=== PATIENT | female | born 1985 | race Caucasian/White ===

== ENCOUNTER → 2017-07-01 | Outpatient (CLI) | payer OTHER ==
[~2017-07-01] MED LIST: ALBU90OI61 INH; BENZ100A PO; CEPH500 PO; LEVSOD100 PO; METPRE4DP PO; Monodox100 MG PO; Norco 5-325 Ta1 EACH PO; Ventolin/Prove6.7 GM INH
== END | disposition home or self-care (01) ==
LOC: LAB 12:47
DX: Z36.85 Encounter for antenatal screening for Streptococcus B (principal); Z3A.35 35 weeks gestation of pregnancy
CPT/HCPCS: 87081; 87653

== ENCOUNTER 2017-08-15 14:44 | Inpatient (IN) | payer OTHER ==
[~2017-08-15] VITALS: Ht 157.5 cm; Wt 99.0 kg
[2017-08-15 16:16] LABS: Source, Urine Clean Catch
[2017-08-15 16:17] LABS: BASOPHILS ABSOLUTE AUTO 0.03 K/mm3 (0.00-0.23); BASOPHILS PERCENT AUTO 0 % (0-2); EOSINOPHILS ABSOLUTE AUTO 0.12 K/mm3 (0.00-0.68); EOSINOPHILS PERCENT AUTO 1 % (0-6); Hematocrit 40.9 % (33.0-51.0); Hemoglobin 13.3 g/dL (11.5-16.0); IMMATURE GRAN ABSOLUTE AUTO 0.04 K/mm3 (0.00-0.10); IMMATURE GRAN PERCENT AUTO 0 % (0-1); LYMPHOCYTES ABSOLUTE AUTO 1.48 K/mm3 (0.84-5.20); LYMPHOCYTES PERCENT AUTO 13 % (21-46); MONOCYTES ABSOLUTE AUTO 0.75 K/mm3 (0.16-1.47); MONOCYTES PERCENT AUTO 7 % (4-13); Mean Corpuscular HGB 27.9 pg (26.0-34.0); Mean Corpuscular HGB Conc 32.5 g/dL (31.5-36.5); Mean Corpuscular Volume 86 fL (80-100); Mean Platelet Volume 11.9 fL (9.1-12.4); NEUTROPHILS ABSOLUTE AUTO 9.02 K/mm3 (1.96-9.15); NEUTROPHILS PERCENT AUTO 79 % (41-73); Platelet Count 177 K/mm3 (150-400); RDW Coefficient Variation 13.8 % (11.7-14.2); RDW Standard Deviation 43.3 fL (35.1-46.3); Red Blood Cell Count 4.76 M/mm3 (3.80-5.20); White Blood Cell Count 11.44 K/mm3 (4.00-11.30)
[2017-08-15 16:22] LABS: Appearance, Urine Clear (Clear); Bilirubin, Urine Neg (Neg); Blood, Urine 4+ (Neg); Color, Urine Yellow (P-Yellow); Glucose Qualitative, Urine Neg (Neg); Ketones, Urine Neg (Neg); Leukocyte Esterase, Urine 1+ (Neg); Nitrite, Urine Neg (Neg); Protein, Urine Neg (Neg); Urobilinogen, Urine NORM (Normal)
[2017-08-15 16:36] LABS: Bacteria Rare /hpf; Red Blood Cells, Urine 0-2 /hpf (0-2); Squamous Epithelial Cells Mod /hpf (Few)
[2017-08-16 06:51] LABS: BASOPHILS ABSOLUTE AUTO 0.02 K/mm3 (0.00-0.23); BASOPHILS PERCENT AUTO 0 % (0-2); EOSINOPHILS ABSOLUTE AUTO 0.03 K/mm3 (0.00-0.68); EOSINOPHILS PERCENT AUTO 0 % (0-6); Hematocrit 34.2 % (33.0-51.0); Hemoglobin 11.1 g/dL (11.5-16.0); IMMATURE GRAN ABSOLUTE AUTO 0.03 K/mm3 (0.00-0.10); IMMATURE GRAN PERCENT AUTO 0 % (0-1); LYMPHOCYTES ABSOLUTE AUTO 1.02 K/mm3 (0.84-5.20); LYMPHOCYTES PERCENT AUTO 12 % (21-46); MONOCYTES ABSOLUTE AUTO 0.64 K/mm3 (0.16-1.47); MONOCYTES PERCENT AUTO 7 % (4-13); Mean Corpuscular HGB 28.3 pg (26.0-34.0); Mean Corpuscular HGB Conc 32.5 g/dL (31.5-36.5); Mean Corpuscular Volume 87 fL (80-100); Mean Platelet Volume 11.9 fL (9.1-12.4); NEUTROPHILS ABSOLUTE AUTO 6.86 K/mm3 (1.96-9.15); NEUTROPHILS PERCENT AUTO 80 % (41-73); Platelet Count 134 K/mm3 (150-400); RDW Standard Deviation 44.1 fL (35.1-46.3); Red Blood Cell Count 3.92 M/mm3 (3.80-5.20)
== END 2017-08-17 11:15 | disposition home or self-care (01) | DRG 775 ==
LOC: OBS 14:44 → BC 14:45 → OBS 15:35 → BC 15:40
PROVIDERS: Obstetrics & Gynecology
PROC: 10D07Z6 Extraction of Products of Conception, Vacuum, Via Natural or Artificial Opening (ICD-10-PCS; principal; 2017-08-15)
DX: O48.0 Post-term pregnancy (principal); O24.420 Gestational diabetes mellitus in childbirth, diet controlled; E03.9 Hypothyroidism, unspecified; O99.284 Endocrine, nutritional and metabolic diseases complicating childbirth; Z37.0 Single live birth; Z3A.42 42 weeks gestation of pregnancy; O76 Abnormality in fetal heart rate and rhythm complicating labor and delivery; Z88.0 Allergy status to penicillin; Z79.899 Other long term (current) drug therapy
CPT/HCPCS: 36415; 81001; 82947; 85025; J2250; J2590; J3010; J7120

== ENCOUNTER 2018-08-12 18:48 | Inpatient (IN) | payer OTHER ==
[~2018-08-12] VITALS: Ht 157.5 cm; Wt 70.6 kg
[~2018-08-12 18:48] MED LIST changes: -LEVSOD100 PO; +LEVSOD150 PO
[2018-08-12 19:10] LABS: Chloride (POC) 112 mmol/L (98-108); Creatinine (POC) 0.7 mg/dL (0.6-1.0); Glucose (ISTAT POC) >700 mg/dL (70-99); Hemoglobin (POC) 15.6 g/dL (12.0-16.0); Potassium (POC) 2.9 mmol/L (3.5-5.5); Sodium (POC) 140 mmol/L (135-148); Total CO2 (POC) <5 mmol/L (21-32)
[2018-08-12 19:24] LABS: PCO2 Arterial < 11 mmHg (35-45); PO2 Arterial 146 mmHg (80-100); pH Blood Arterial 6.87 (7.35-7.45)
[2018-08-12 19:29] LABS: BASOPHILS ABSOLUTE AUTO 0.24 K/mm3 (0.00-0.23); BASOPHILS PERCENT AUTO 1 % (0-2); EOSINOPHILS ABSOLUTE AUTO 0.01 K/mm3 (0.00-0.68); EOSINOPHILS PERCENT AUTO 0 % (0-6); Hematocrit 45.2 % (33.0-51.0); Hemoglobin 15.4 g/dL (11.5-16.0); IMMATURE GRAN ABSOLUTE AUTO 0.19 K/mm3 (0.00-0.10); IMMATURE GRAN PERCENT AUTO 1 % (0-1); LYMPHOCYTES ABSOLUTE AUTO 1.81 K/mm3 (0.84-5.20); LYMPHOCYTES PERCENT AUTO 7 % (21-46); MONOCYTES ABSOLUTE AUTO 2.69 K/mm3 (0.16-1.47); MONOCYTES PERCENT AUTO 10 % (4-13); Mean Corpuscular HGB 33.2 pg (26.0-34.0); Mean Corpuscular HGB Conc 34.1 g/dL (31.5-36.5); Mean Corpuscular Volume 97 fL (80-100); Mean Platelet Volume 11.8 fL (9.1-12.4); NEUTROPHILS PERCENT AUTO 81 % (41-73); Platelet Count 394 K/mm3 (150-400); RDW Coefficient Variation 13.3 % (11.7-14.2); Red Blood Cell Count 4.64 M/mm3 (3.80-5.20); White Blood Cell Count 25.94 K/mm3 (4.00-11.30)
[2018-08-12 19:43] LABS: Source, Urine Catheter
[2018-08-12 19:48] LABS: Bilirubin, Urine Neg (Neg); Blood, Urine 3+ (Neg); Glucose Qualitative, Urine 4+ (Neg); Ketones, Urine 4+ (Neg); Leukocyte Esterase, Urine Neg (Neg); Nitrite, Urine Neg (Neg); Protein, Urine 3+ (Neg); Urobilinogen, Urine NORM (Normal)
[2018-08-12 19:50] LABS: Magnesium, Blood 3.2 mg/dL (1.6-2.4); Phosphorus, Blood 5.2 mg/dL (2.5-4.9)
[2018-08-12 19:55] LABS: Appearance, Urine Hazy (Clear); Color, Urine Yellow (P-Yellow)
[2018-08-12 19:59] LABS: Alanine Aminotransfer (ALT/SGP 22 U/L (12-78); Albumin, Blood 4.1 g/dL (3.4-5.0); Alk Phos 256 U/L (50-136); Anion Gap 32 mmol/L (6-16); Aspartate Aminotrans (AST/SGOT 10 U/L (12-37); Bilirubin, Total 0.5 mg/dL (0.1-1.0); Blood Urea Nitrogen 17 mg/dL (8-24); Bun/Creatinine Ratio 23.1 (12.0-20.0); CO2, Blood 2 mmol/L (21-32); Calcium, Blood 10.6 mg/dL (8.5-10.1); Chloride, Blood 104 mmol/L (98-108); Creatinine, Blood 0.74 mg/dL (0.40-1.00); Globulin, Blood 4.2 g/dL (2.2-4.0); Glomerular Filtration Rate >60 (60-); Glucose, Blood 710 mg/dL (70-99); Potassium, Blood 2.9 mmol/L (3.5-5.5); Sodium, Blood 138 mmol/L (136-145); Total Protein, Blood 8.3 g/dL (6.4-8.2)
[2018-08-12 20:01] LABS: Amorphous Light ({null, 0-Heavy}); Bacteria Mod /hpf; Red Blood Cells, Urine 0-2 /hpf (0-2); Squamous Epithelial Cells Few /hpf (Few); White Blood Cells, Urine 0-2 /hpf (0-5)
[2018-08-12 20:03] LABS: Magnesium, Blood 3.1 mg/dL (1.6-2.4)
[2018-08-12] MEDS ORDERED: Metformin HCl500 MG PO (20:12)
[2018-08-12 20:42] LABS: Influenza A Negative (NEGATIVE); Influenza B Negative (NEGATIVE)
[2018-08-12 21:10] LABS: Calcium, Ionized (POC) 1.44 mmol/L (1.10-1.46); Chloride (POC) 117 mmol/L (98-108); Creatinine (POC) 0.6 mg/dL (0.6-1.0); Glucose (ISTAT POC) 634 mg/dL (70-99); Hemoglobin (POC) 13.9 g/dL (12.0-16.0); Potassium (POC) 3.2 mmol/L (3.5-5.5); Sodium (POC) 144 mmol/L (135-148); Total CO2 (POC) 7 mmol/L (21-32)
[2018-08-12 23:20] LABS: Calcium, Ionized (POC) 1.37 mmol/L (1.10-1.46); Chloride (POC) 121 mmol/L (98-108); Creatinine (POC) 0.6 mg/dL (0.6-1.0); Glucose (ISTAT POC) 587 mg/dL (70-99); Hemoglobin (POC) 13.3 g/dL (12.0-16.0); Potassium (POC) 3.6 mmol/L (3.5-5.5); Sodium (POC) 146 mmol/L (135-148); Total CO2 (POC) 6 mmol/L (21-32)
[2018-08-13 00:47] LABS: Blood Urea Nitrogen 15 mg/dL (8-24); Bun/Creatinine Ratio 24.7 (12.0-20.0); CO2, Blood <1 mmol/L (21-32); Chloride, Blood 119 mmol/L (98-108); Creatinine, Blood 0.61 mg/dL (0.40-1.00); Glomerular Filtration Rate >60 (60-); Glucose, Blood 523 mg/dL (70-99); Potassium, Blood 3.6 mmol/L (3.5-5.5)
[2018-08-13 00:53] LABS: Anion Gap Unable to Calculate mmol/L (6-16); Calcium, Blood 8.4 mg/dL (8.5-10.1); Sodium, Blood 148 mmol/L (136-145)
--- NOTE | 2018-08-13 01:05 | NUR ---
ADMIT NOTE ADMIT 33 YEAR OLD FEMALE TO ICU 9 TO HOSPITALIST, DR GONZALEZ SERVICE PER [facility] VIA ER. TRANSFER TO BED USING SLIDER SHEET. MONITOR PLACED SHOWING SINUS TACH HEART RATE 120'S-130'S. DOES NOT FOLLOW REQUEST DIRECTION. LUNG SOUNDS CLEAR RESPIRATIONS RAPID 30'S-40'S. SPO2 98-100% ABDOMEN SOFT WITH BOWEL SOUND S FOUR QUADS. ATTENDS IN PLACE SECONDARY TO INCONTINECE. IS HAVING MENES. SKIN PALE WARM/DRY NO EDEMA NOTED. DR GONZALEZ AT BEDSIDE. ORDERS NOTED. CONTINUE TO MONITOR AND REPORT CHANGE IN PATIENT CONDITION. IV BICARB GIVEN AFTER R AC SITE CHECKED WITH GOOD BLOOD RETURM. IV SITE LEAKING WHEN ATTEMPTING TO START BICARB GTT. SITE DC'D. INSULIN GTT CONTINUES AT 3.6ML/HR WITH HOURLY BLOOD GLUCOSE CHECKS.
--- NOTE | 2018-08-13 01:30 | NUR ---
IV ATTMPTS UNSUCCESSFULL. DR GONZALEZ NOTIFIED INSULIN STOPPED TO BE ABLE TO INFUSE BICARB GTT. ORDERS NOTED. DR WEEKS NOTIFIED OF NEED FOR CENTRAL LINE.CONTINUE TO MONITOR AND REPORT CHANGE IN PATIENT CONDITION.
--- NOTE | 2018-08-13 01:50 | NUR ---
DR GONZALEZ AT BEDSIDE.
--- NOTE | 2018-08-13 02:00 | NUR ---
DR WEEKS AT BEDSIDE. DR GONZALEZ ORDERS FOR SOFT WRIST RESTRAINTS NOTED PAT PLACED IN SOFT BILATERAL WRIST RESTRAINTS TO PREVENT INADVERTENT REMOVAL OF LINES/TUBES. CONTINUES TO MOVE ALL OVER THE BED AND UNABLE TO FOLLOW REQUESTS. 0220 MEDICATED FOR CENTRAL LINE PLACEMENT. 0240CENTRAL LINE PLACEMENT COMPLETE STAT CXR OBTAINED AT 0250. DR WEEKS OK'D LINE USAGE PER LINING BRUSHER. INSULIN GTT RESTARTED AT 3.6ML/HR AND ONE HALF NORMAL SALINE WITH BICARB INITATED AT WIDE OPEN.S. SPOUSE AT BEDSIDE ASSISTING WITH ADMIT HISTORY AND INFORMED CONSENTS.CONTINUE TOMONITOR BLOOD GLUCOSE CHECKS.
--- NOTE | 2018-08-13 03:05 | NUR ---
DR. GONZAELZ CALLED AT 0120 FOR CENTRAL LINE PLACEMENT SINCE ALL ATTEMPTS FOR PERIPHERAL FAILED. NEW ORDERS TO STOP INSULIN AND INFUSE BICARB gtt UNTIL SECOND IV ACHIEVED AND TO ATTEMPT IV START IN PT'S FEET AND TO CALL BACK IF NOT SUCCESSFUL.
--- NOTE | 2018-08-13 03:30 | NUR ---
RETCHING WITH BROWN/GREEN BILE LIKE EMESIS WHEN AWAKE. APPROX 100ML. DR GONZALEZ NOTIFIED OF LAB RESULTS AND ORDER FOR MOSQUERA OBTAINED. MOSQUERA PLACED WITH IMMEDIATE RETURN OF 350 CLEAR SIRIA URINE. SPOUSE AT BEDSIDE ATTENTIVE TO CCARES NEEDS.
--- NOTE | 2018-08-13 04:30 | NUR ---
DOZES AT INTERVALS. RETCHING WHEN AWAKE. MEDICATED WITH ZOFRAN 4MG IV. PULLING AT RESTRAINTS SUBHASH AGRAWAL ASHLEY . EXPLAINED NPO STATUS CONTINUES TO ASK FOR WATER. PULLS AT WRIST RESTRAINTS. CONTINUE TO MONITOR AND REPORT CHANGE IN PATIENT CONDITION.
[2018-08-13 04:31] LABS: Anion Gap 28 mmol/L (6-16); Blood Urea Nitrogen 14 mg/dL (8-24); Bun/Creatinine Ratio 23.2 (12.0-20.0); CO2, Blood 4 mmol/L (21-32); Calcium, Blood 7.7 mg/dL (8.5-10.1); Chloride, Blood 122 mmol/L (98-108); Glomerular Filtration Rate >60 (60-); Glucose, Blood 370 mg/dL (70-99); Potassium, Blood 2.7 mmol/L (3.5-5.5); Sodium, Blood 154 mmol/L (136-145)
--- NOTE | 2018-08-13 06:30 | NUR ---
SHIFT SUMMARY : REST QUIETLY WHEN UNDISTURBED. RETCHING AND DRY HEAVES WHEN AWAKENED. MONITOR INTACT SHOWING SINUS TACH HEART RATE 110'S-120'S. LUNG SOUNDS REMAIN CLEAR WITH SPO2 98-100% ON ROOM AIR ABDOMEN SOFT WITH BOWEL SOUNDS FOUR QUADS. MOSQUERA PATENT DRAINING CLEAR YELLOW URINE.NO EDEMA NOTED.REMAINS IN SOFT WRIST RESTRAINTS TIMES TWO TO PREVENT INADVERTENT REMOVAL OF TUBES/LINES.SPOUSE REMAINS AT BEDSIDE ATTENTIVE TO NEEDS CARES. CONTINUE TO MONITOR AND REPORT CHANGE IN PATINET CONDITION
[2018-08-13 07:18] LABS: Adenovirus Not Detected (NOT DETECT); Bordetella pertussis Not Detected (NOT DETECT); Chlamydophila pneumoniae Not Detected (NOT DETECT); Coronavirus 229E Not Detected (NOT DETECT); Coronavirus HKU1 Not Detected (NOT DETECT); Coronavirus NL63 Not Detected (NOT DETECT); Coronavirus OC43 Not Detected (NOT DETECT); Human Metapneumovirus Not Detected (NOT DETECT); Human Rhinovirus/Enterovirus Not Detected (NOT DETECT); Influenza A Not Detected (NOT DETECT); Influenza A/2009-H1 Not Detected (NOT DETECT); Influenza A/H1 Not Detected (NOT DETECT); Influenza A/H3 Not Detected (NOT DETECT); Influenza B Not Detected (NOT DETECT); Mycoplasma pneumoniae Not Detected (NOT DETECT); Parainfluenza Virus 1 Not Detected (NOT DETECT); Parainfluenza Virus 2 Not Detected (NOT DETECT); Parainfluenza Virus 3 Not Detected (NOT DETECT); Parainfluenza Virus 4 Not Detected (NOT DETECT); Respiratory Syncytial Virus Not Detected (NOT DETECT)
[2018-08-13 08:43] LABS: Blood Urea Nitrogen 14 mg/dL (8-24); Bun/Creatinine Ratio 20.6 (12.0-20.0); Calcium, Blood 8.3 mg/dL (8.5-10.1); Chloride, Blood 125 mmol/L (98-108); Creatinine, Blood 0.68 mg/dL (0.40-1.00); Glomerular Filtration Rate >60 (60-); Glucose, Blood 236 mg/dL (70-99); Sodium, Blood 155 mmol/L (136-145)
[2018-08-13 08:45] LABS: Anion Gap 22 mmol/L (6-16); CO2, Blood 8 mmol/L (21-32); Potassium, Blood 2.1 mmol/L (3.5-5.5)
--- NOTE | 2018-08-13 08:52 | NUR ---
ASSUMED CARE ASSUMED CARE OF PT AT 0700. REPORT RECEIVED FROM OBDULIA VIDES. PT IN BED, SLEEPING, AROUSES TO VERBAL STIMULUS. PT CONFUSED - UNABLE TO STATE NAME OR ANSWER ANY QUESTIONS AT THIS TIME. PT RETCHES WHEN AWAKE - CALL TO DR. NUNEZ WITH ORDERS RECEIVED FOR IV REGLAN. ALSO DISCUSSED LOW POTASSIUM - ORDERS RECEIVED FOR IV KCL REPLACEMENT. PT'S VITAL SIGNS STABLE - MONITOR SHOWS SINUS RHYTHM WITH HR 90'S, BP STABLE, SPO2 98% ON ROOM AIR. PT HAS CL TO RIJ. INSULIN GTT AT 3.6 UNITS/HR UPON ASSUMING CARE, TITRATED TO 4 UNITS/HR AT 0845 FOR INCREASED BP AFTER STARTING D5 1/2NS. PT HAS MOSQUERA CATH IN PLACE DRAINING CLEAR YELLOW URINE TO GRAVITY. PT IS ON MENSES CURRENTLY WITH PROTECTIVE PAD IN PLACE. PT HAS DEE SOFT WRIST RESTRAINTS IN PLACE TO PROTECT LINES, TUBES. PT'S AT BEDSIDE. WILL CONTINUE TO MONITOR PT.
--- NOTE | 2018-08-13 11:52 | NUR ---
RE-ASSESSMENT PT MORE ALERT WHEN AWAKE AT THIS TIME. FOLLOWING SOME DIRECTIONS. ABLE TO STATE NAME, BIRTHDATE AND WHEREABOUTS, ORIENTED TO FAMILY MEMBERS AT BEDSIDE. INSULIN GTT BEING TITRATED TO MAINTAIN BLOOD SUGARS 180-250 RANGE. D5 1/2 NS CONTINUES AT 125ML/HR. SECOND BAG OF KCL INFUSING AT THIS TIME. RESTRAINTS REMOVED AT THIS TIME. WILL CONTINUE TO MONITOR PT CLOSELY.
[2018-08-13 12:37] LABS: Anion Gap 15 mmol/L (6-16); Blood Urea Nitrogen 13 mg/dL (8-24); Bun/Creatinine Ratio 19.6 (12.0-20.0); CO2, Blood 16 mmol/L (21-32); Calcium, Blood 8.3 mg/dL (8.5-10.1); Chloride, Blood 125 mmol/L (98-108); Creatinine, Blood 0.66 mg/dL (0.40-1.00); Glomerular Filtration Rate >60 (60-); Glucose, Blood 251 mg/dL (70-99); Potassium, Blood 2.1 mmol/L (3.5-5.5); Sodium, Blood 156 mmol/L (136-145)
--- NOTE | 2018-08-13 15:08 | NUR ---
Per admit trigger, I met with Krystyna and her SO at bedside. Krystyna is very tired and could not stay awake. SO appears loving and attentive. SO declined prayer and their supply chain planner is making visits. I will remain available.
[2018-08-13 16:36] LABS: Anion Gap 12 mmol/L (6-16); Blood Urea Nitrogen 13 mg/dL (8-24); Bun/Creatinine Ratio 20.8 (12.0-20.0); CO2, Blood 18 mmol/L (21-32); Calcium, Blood 8.4 mg/dL (8.5-10.1); Chloride, Blood 125 mmol/L (98-108); Creatinine, Blood 0.63 mg/dL (0.40-1.00); Glomerular Filtration Rate >60 (60-); Glucose, Blood 192 mg/dL (70-99); Sodium, Blood 155 mmol/L (136-145)
--- NOTE | 2018-08-13 18:44 | NUR ---
SHIFT SUMMARY PT INCREASINGLY ALERT AND ORIENTED SHIFT PROGRESSED - PT ALERT TO SELF, FOLLOWING DIRECTIONS, FAMILY, ABLE TO VERBALIZE NEEDS. RESTRAINTS REMOVED THIS AM. PT REMAINS ON INSULIN GTT AWAITING LAB CORRECTION, CURRENTLY AT 4 UNITS/HR. D5 1/2NS INFUSING AT 125ML/HR. PT IS CURRENTLY RECEIVING 4TH BAG OF IV KCL THIS SHIFT TO TOTAL 80 MEQ - TO RECEIVE 2 MORE BAGS TONIGHT FOR TOTAL OF 120 MEQ. IV ROCEPHIN STARTED PER ORDERS. VITAL SIGNS STABLE T/O SHIFT, ON ROOM AIR. MOSQUERA CATH CONTINUES TO DRAIN CLEAR YELLOW URINE TO GRAVITY. PT'S AT BEDSIDE T/O SHIFT ASSISTING WITH CARE. WILL CONTINUE TO MONITOR PT AND GIVE HANDOFF REPORT TO ONCOMING RN.
--- NOTE | 2018-08-13 19:55 | NUR ---
ASSUMED CARE OF PT AT 1900. REPORT RECEIVED AT BEDSIDE. PT PRESENTS IN BED. FLAT AFFECT. PLEASANT AND COOPERATIVE WITH CARE. AT BEDSIDE. CONTINUING WITH INSULIN AT 4 UNITS PER HOUR AND HOURLY BLOOD GLUCOSE CHECKS. PT CONTINUES ON POTASSIUM REPLACEMENT. WILL REVIEW CHART AND PLAN OF CARE FOR THIS PT.
[2018-08-14 03:25] LABS: Anion Gap 10 mmol/L (6-16); Blood Urea Nitrogen 12 mg/dL (8-24); Bun/Creatinine Ratio 20.6 (12.0-20.0); CO2, Blood 21 mmol/L (21-32); Calcium, Blood 8.2 mg/dL (8.5-10.1); Chloride, Blood 122 mmol/L (98-108); Creatinine, Blood 0.58 mg/dL (0.40-1.00); Glomerular Filtration Rate >60 (60-); Glucose, Blood 110 mg/dL (70-99); Potassium, Blood 2.1 mmol/L (3.5-5.5); Sodium, Blood 153 mmol/L (136-145)
[2018-08-14 04:40] LABS: BASOPHILS ABSOLUTE AUTO 0.04 K/mm3 (0.00-0.23); BASOPHILS PERCENT AUTO 0 % (0-2); EOSINOPHILS ABSOLUTE AUTO 0.04 K/mm3 (0.00-0.68); EOSINOPHILS PERCENT AUTO 0 % (0-6); Hematocrit 26.8 % (33.0-51.0); Hemoglobin 9.8 g/dL (11.5-16.0); IMMATURE GRAN ABSOLUTE AUTO 0.03 K/mm3 (0.00-0.10); IMMATURE GRAN PERCENT AUTO 0 % (0-1); LYMPHOCYTES ABSOLUTE AUTO 0.96 K/mm3 (0.84-5.20); LYMPHOCYTES PERCENT AUTO 11 % (21-46); MONOCYTES ABSOLUTE AUTO 1.03 K/mm3 (0.16-1.47); MONOCYTES PERCENT AUTO 11 % (4-13); Mean Corpuscular HGB 33.3 pg (26.0-34.0); Mean Corpuscular HGB Conc 36.6 g/dL (31.5-36.5); NEUTROPHILS PERCENT AUTO 77 % (41-73); Platelet Count 132 K/mm3 (150-400); RDW Coefficient Variation 12.8 % (11.7-14.2); RDW Standard Deviation 41.6 fL (35.1-46.3); Red Blood Cell Count 2.94 M/mm3 (3.80-5.20)
[2018-08-14 04:42] LABS: Mean Corpuscular Volume 91 fL (80-100)
[2018-08-14 05:14] LABS: Alanine Aminotransfer (ALT/SGP 10 U/L (12-78); Albumin, Blood 2.6 g/dL (3.4-5.0); Albumin/Globulin Ratio 0.9 (0.8-1.8); Alk Phos 128 U/L (50-136); Anion Gap 13 mmol/L (6-16); Aspartate Aminotrans (AST/SGOT 10 U/L (12-37); Bilirubin, Total 0.3 mg/dL (0.1-1.0); Blood Urea Nitrogen 12 mg/dL (8-24); CO2, Blood 19 mmol/L (21-32); Calcium, Blood 8.1 mg/dL (8.5-10.1); Chloride, Blood 119 mmol/L (98-108); Globulin, Blood 2.8 g/dL (2.2-4.0); Glomerular Filtration Rate >60 (60-); Glucose, Blood 149 mg/dL (70-99); Potassium, Blood 2.2 mmol/L (3.5-5.5); Sodium, Blood 151 mmol/L (136-145)
[2018-08-14 05:17] LABS: Total Protein, Blood 5.4 g/dL (6.4-8.2)
--- NOTE | 2018-08-14 06:43 | NUR ---
PT CONTINUES ON INSULIN DRIP WITH RATE LOW 1 UNIT PER HOUR. PT'S BLOOD GLUCOSE LEVEL INCREASED AND NEEDED TO HAVE INSULIN INCREASED TO 2 UNITS. PT MORE INTERACTIVE THIS MORNING. REMAINS WITH FLAT AFFECT BUT DOES HOLD CONVERSATION. PT CURRENTLY RECEIVING POTASSIUM RIDERS. SEE DOWNTIME CHARTING PER TRI-FOLD FOR NURSE'S NOTES AND OTHER ASSESSMENTS. WILL CONTINUE TO MONITOR PT, AND WILL REPORT OFF TO ONCOMING RN.
--- NOTE | 2018-08-14 07:15 | NUR ---
RECEIVED REPORT FROM OBDULIA DAVIS, AND ASSUMED CARE OF PT.
--- NOTE | 2018-08-14 07:45 | NUR ---
[facility].
[2018-08-14 09:20] LABS: Anion Gap 10 mmol/L (6-16); Blood Urea Nitrogen 11 mg/dL (8-24); Bun/Creatinine Ratio 18.4 (12.0-20.0); CO2, Blood 20 mmol/L (21-32); Calcium, Blood 8.2 mg/dL (8.5-10.1); Chloride, Blood 118 mmol/L (98-108); Glomerular Filtration Rate >60 (60-); Glucose, Blood 212 mg/dL (70-99); Potassium, Blood 2.4 mmol/L (3.5-5.5); Sodium, Blood 148 mmol/L (136-145)
[2018-08-14 13:22] LABS: Anion Gap 11 mmol/L (6-16); Blood Urea Nitrogen 11 mg/dL (8-24); Bun/Creatinine Ratio 19.4 (12.0-20.0); CO2, Blood 21 mmol/L (21-32); Calcium, Blood 8.1 mg/dL (8.5-10.1); Chloride, Blood 116 mmol/L (98-108); Creatinine, Blood 0.57 mg/dL (0.40-1.00); Glomerular Filtration Rate >60 (60-); Glucose, Blood 214 mg/dL (70-99); Potassium, Blood 2.2 mmol/L (3.5-5.5); Sodium, Blood 148 mmol/L (136-145)
--- NOTE | 2018-08-14 13:30 | NUR ---
CALLED DR. LEE WITH LAB RESULTS, NEW ORDERS PROVIDED.
[2018-08-14 14:08] LABS: Magnesium, Blood 1.9 mg/dL (1.6-2.4)
[2018-08-14 14:14] LABS: Albumin, Blood 2.8 g/dL (3.4-5.0); Anion Gap 10 mmol/L (6-16); Blood Urea Nitrogen 11 mg/dL (8-24); Bun/Creatinine Ratio 18.8 (12.0-20.0); CO2, Blood 21 mmol/L (21-32); Calcium, Blood 8.1 mg/dL (8.5-10.1); Chloride, Blood 117 mmol/L (98-108); Creatinine, Blood 0.59 mg/dL (0.40-1.00); Glomerular Filtration Rate >60 (60-); Glucose, Blood 213 mg/dL (70-99); Potassium, Blood 2.3 mmol/L (3.5-5.5); Sodium, Blood 148 mmol/L (136-145)
[2018-08-14 14:35] LABS: Phosphorus, Blood 0.4 mg/dL (2.5-4.9)
--- NOTE | 2018-08-14 17:10 | NUR ---
ACCOMPANIED PT TO THE ICU WAITING ROOM SO PT COULD VISIT WITH HER THREE CHILDREN. TOLERATED WELL.
--- NOTE | 2018-08-14 18:35 | NUR ---
NURSING SUMMARY ALERT AND ORIENTED X 4. INSULIN GTT INFUSING AT 2 UNITS/HR UNTIL STOPPED AT 1230. LANTUS 10 U GIVEN AND CONVERTED TO AC&HS MEDIUM SCALE. CBG AT 1700 = 294, CALLED DR. NUNEZ AND INCREASED SLIDING SCALE TO HIGH SLIDING SCALE. PT TOLERATING SMALL AMOUNTS OF ADA DIET, MILDLY NAUSEATED, EMESIS ONCE THIS MORNING. POTASSIUM LEVELS HAVE BEEN LOW, PT IS CURRENTLY RECEIVING HER 7TH BAG OF POTASSIUM CHLORIDE 20 MEQS SO FAR TODAY, ONE MORE BAG TO INFUSE TONIGHT AND THE LABS ARE SCHEDULED AT 2330. DR. LEE WANTS LABS 1 HOUR AFTER LAST K-RIDER INFUSES. PHOSPHORUS LOW AT 0.4, CURRENTLY INFUSING POTASSIUM PHOSPHATE. ROCEPHIN STARTED. LUNGS CLEAR, ROOM AIR, MEDICAL STATUS, NON-TELE, NSR 80'S PRIOR TO DISCONTINUING TELE, EVELINE DC'D AT 1800, AWAITING FIRST VOID. RIJ CENTRAL LINE, QUAD LUMEN, CHANGED DRESSING AND CAPS TODAY. AMBULATED TO THE SHOWER AND HAD A SHOWER TODAY. TOOK TO THE ICU WAITING ROOM TO VISIT HER CHILDREN TODAY. PT IS ON HER MENSES, HAS A MARISA PAD IN PLACE. RIGHT HAND AND RIGHT AC SALINE LOCKS.
[2018-08-14 23:13] LABS: Potassium, Blood 2.8 mmol/L (3.5-5.5)
--- NOTE | 2018-08-15 07:43 | NUR ---
SUMMARY PT HAS SLEPT MAJORITY OF NIGHT, AT BEDSIDE THROUGHOUT NIGHT. VITALS STABLE. SEE ASSESSMENT. PT TOLERATING SMALL AMOUNTS OF FOOD THROUGHOUT NIGHT. PT HAD POTASSIUM INFUSING THROUGHOUT NIGHT PER MD ORDERS AND LABS. AM LABS HELD FOR COMPLETION OF FINAL KCL INFUSION TO COMPLETE. DR. LEE AT BEDSIDE THIS MORNING, NEW ORDERS RECEIVED. REPORT TO OBDULIA CARMICHAEL.
[2018-08-15 09:06] LABS: BASOPHILS ABSOLUTE AUTO 0.03 K/mm3 (0.00-0.23); BASOPHILS PERCENT AUTO 1 % (0-2); EOSINOPHILS ABSOLUTE AUTO 0.04 K/mm3 (0.00-0.68); EOSINOPHILS PERCENT AUTO 1 % (0-6); Hematocrit 27.9 % (33.0-51.0); Hemoglobin 9.8 g/dL (11.5-16.0); IMMATURE GRAN ABSOLUTE AUTO 0.03 K/mm3 (0.00-0.10); IMMATURE GRAN PERCENT AUTO 1 % (0-1); LYMPHOCYTES ABSOLUTE AUTO 1.31 K/mm3 (0.84-5.20); LYMPHOCYTES PERCENT AUTO 24 % (21-46); MONOCYTES ABSOLUTE AUTO 0.51 K/mm3 (0.16-1.47); MONOCYTES PERCENT AUTO 9 % (4-13); Mean Corpuscular HGB 32.3 pg (26.0-34.0); Mean Corpuscular HGB Conc 35.1 g/dL (31.5-36.5); Mean Corpuscular Volume 92 fL (80-100); Mean Platelet Volume 10.7 fL (9.1-12.4); NEUTROPHILS ABSOLUTE AUTO 3.64 K/mm3 (1.96-9.15); NEUTROPHILS PERCENT AUTO 66 % (41-73); Platelet Count 107 K/mm3 (150-400); RDW Coefficient Variation 13.5 % (11.7-14.2); Red Blood Cell Count 3.03 M/mm3 (3.80-5.20); White Blood Cell Count 5.56 K/mm3 (4.00-11.30)
[2018-08-15 09:27] LABS: Albumin, Blood 2.8 g/dL (3.4-5.0); Anion Gap 9 mmol/L (6-16); Blood Urea Nitrogen 9 mg/dL (8-24); Bun/Creatinine Ratio 15.9 (12.0-20.0); CO2, Blood 24 mmol/L (21-32); Chloride, Blood 112 mmol/L (98-108); Creatinine, Blood 0.57 mg/dL (0.40-1.00); Glomerular Filtration Rate >60 (60-); Glucose, Blood 275 mg/dL (70-99); Magnesium, Blood 1.7 mg/dL (1.6-2.4); Potassium, Blood 3.4 mmol/L (3.5-5.5); Sodium, Blood 145 mmol/L (136-145)
[2018-08-15 09:31] LABS: Phosphorus, Blood 0.9 mg/dL (2.5-4.9)
--- NOTE | 2018-08-15 13:55 | NUR ---
Assumed Care: Assumed care of pt at approx 0700. VSS. In no apparent sign fo distress. Pt is A&Ox4. Calls appropriately and repositions self. Denies any pain at this time. See shift assessment for detailed assessment. Dr. Weston at bedside this AM and received orders for IV phosphorus replacement and recheck. Dr. Weston aware of ABD pain w/eating and ordered ABD ultrasound - states that he will possible DC pt tonight if ABD ultrasound is unremarkable. Central line is running NS TKO. Pt is currently resting in bed with call light within reach. Denies any further questions, complaints or requests at this time. Will continue to monitor.
--- NOTE | 2018-08-15 15:11 | NUR ---
CARE OF PT ASSUMED AT 1400. PT AWAKE AND ALERT. ORIENTED TO SELF AND FOLLOWINF DIRECTIONS. PT DESPLAYS BOTH RECEPTIVE AND EXPRESSIVE APHAGIA. PT SHARES HER FRUSTRATION WITH INABILTY TO SAY WHAT SHE IS THINKING, SHE ALSO COMPLAINS THAT SHE IS HAVING A DIFFICULT TIME THINKING OF WHAT SHE WHOULD LIKE TO SAY. IT TAKES MULTIPLE REPETITIONS OF SAME QUESTION AND ALSO GIVING PT SEVERAL MINUTES TO PROCESS QUESTION BEFORE SHE IS ABLE TO ANSWER MOST QUESTIONS. 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 SHE WAS UNABLE TO COME UP WITH THE YEAR OR TOWN, AND TOOK HER SOME TIME TO STATE WITH WHOM SHE LIVES WITH. SHE ALSO HAD A DIFFICULT TIME ANSWERING QUESTIONS ABOUT HER PAST MEDICAL HISTORY. MODIFIED AUDIENCE DEVELOPMENT MANAGER STRENGTH WAS EQUAL AND STRONG( 5/5). LOWER EXT STRENGTH WAS ALSO 5/5. PT WAS TRANSFERED BACK TO BED FROM CHAIR USING LIFT. PT WAS GIVEN FULL BED BATH AND FOUND INCONTINENT OF STOOL. SCD'S WERE PLACED. BILAT HANDS ARE EDEMATOUS WITH SOME BRUISING; POSSIBLY FROM LAB STICKS. PT C/O PAIN TO HANDS, HANDS ELEVATED ON PILLOWS. PT STATED THAT SHE HAS A HISTORY OF BILATERAL ROTATOR CUFF TEARS. PT C/O PAIN TO BILATERAL SHOULDERS W REDUCED ROM. LIDOCAINE PATCHES TO SHOULDERS BILAT. BLOOD TRANSFUSION COMPLETED JUST PRIOR TO ASSUMING CARE, PT EDMOND WELL; LASIX 10MG IVP GIVEN ORDERED.
--- NOTE | 2018-08-15 15:47 | NUR ---
CARE ASSUMED OF PT AT 1400. PT ROSA AND DR NUNEZ CALLED AND UPDATED ON PT'S CONDITION. ORDERS VARIFIED. PT AWAKE AND ALERT, DENIES C/O PAIN OR NAUSEA. 1/2NS AT 75CC/HR STARTED PER DR LEE. PT NPO X WATER FOR ULTRASOUND THIS EVENING. K+, AND PHOS TO BE REDRAWN WHEN KPHOS RIDER COMPLETE. RESULTS TO BE CALLED INTO DR LEE. AT BEDSIDE; SUPPORTIVE
--- NOTE | 2018-08-15 19:30 | NUR ---
ASSUMED PT CARE FROM OBDULIA JEAN BAPTISTE PT SLEEPING UPON ENTERING ROOM. AT BEDSIDE. PT APPEARS COMFORTABLE AT THIS TIME. NEW ORDERS ENTERED BY REPORTING OFF RN FOR REPLACEMENT ELECTROLYTES FROM DR. LEE. CALL LIGHT IS WITHIN REACH. PT ABLE TO MAKE NEEDS KNOWN. PT IS ALSO INDEPENDENT WITH ALL ADL'S.
--- NOTE | 2018-08-15 19:49 | NUR ---
DR LEE CALLED AND GIVEN K+ AND PHOS RESULTS. 60MEQ KCL AND KPHOS 10MMOL ORDERED. REPORT GIVEN TO ANDREW STEINER
--- NOTE | 2018-08-15 21:55 | NUR ---
REPORTED OFF TO SURGICAL FLOOR RNELLIOT PT TRANSPORTED TO ROOM 220 WITH BELONGINGS AND MEDICATIONS. CENTRAL LINE REMAINS TO RIGHT IJ WITH REPLACEMENT FLUIDS INFUSING AT THIS TIME. NO ORDERS TO D/C CENTRAL LINE; THEREFORE, RECEIVING RN NOTIFIED WHEN ORDERS ARE OBTAINED TO D/C LINE; CALL BACK TO ICU FOR MACHINE ADJUSTER TO COME D/C. PT APPEARED IN NO DISTRESS WHILE BEING ESCORTED OFF UNIT.
--- NOTE | 2018-08-16 03:47 | NUR ---
SHIFT SUMMARY PT A&O X4 T/O SHIFT. TRANSFER FROM ICU APPROX. 2200; PT AT BEDISDE T/O SHIFT. IV GTT PER EMAR. SCD'S TO BLE'S. LS CLEAR, RA; PT DENIES SOB, PAIN, NASUEA AND CP. CALL LIGHT IN REACH; PT DEMONSTRATES USE. PT INDEPENDENT IN ROOM. WCTM UNTIL REPORT TO DAY SHIFT RN.
[2018-08-16 06:00] LABS: Hematocrit 27.2 % (33.0-51.0); Hemoglobin 9.4 g/dL (11.5-16.0)
[2018-08-16 06:30] LABS: Albumin, Blood 2.5 g/dL (3.4-5.0); Anion Gap 7 mmol/L (6-16); Blood Urea Nitrogen 6 mg/dL (8-24); Bun/Creatinine Ratio 12.3 (12.0-20.0); CO2, Blood 28 mmol/L (21-32); Calcium, Blood 7.6 mg/dL (8.5-10.1); Chloride, Blood 111 mmol/L (98-108); Creatinine, Blood 0.49 mg/dL (0.40-1.00); Glomerular Filtration Rate >60 (60-); Glucose, Blood 183 mg/dL (70-99); Magnesium, Blood 1.7 mg/dL (1.6-2.4); Phosphorus, Blood 2.2 mg/dL (2.5-4.9); Potassium, Blood 3.6 mmol/L (3.5-5.5); Sodium, Blood 146 mmol/L (136-145)
[2018-08-16] MEDS ORDERED: ALBU90OI INH (13:07)
[2018-08-16] MEDS ORDERED: INSULANPEN SC (13:09)
[2018-08-16] MEDS ORDERED: POTA10T PO (13:10)
[2018-08-16] MEDS ORDERED: ONDA4ODT PO (13:10)
[2018-08-16] MEDS ORDERED: SPIR50 PO (13:11)
--- NOTE | 2018-08-16 14:08 | NUR ---
DISCHARGE PT PROVIDED WITH WRITTEN AND VERBAL DISCHARGE INSTRUCTIONS. PT AND HER SPOUSE REPORTED UNDERSTANDING. CENTRAL LINE REMOVED BY IMAN STEINER. PRESCRIPTIONS SENT TO PT'S PHARMACY. PT ESCORTED OUT IN W/C BY MUNA STEINER.
[2018-08-21 09:15] LABS: ALDOS/RENIN RATIO 0.8 (0.0-30.0); ALDOSTERONE 3.2 ng/dL (0.0-30.0)
== END 2018-08-16 14:07 | disposition home or self-care (01) | DRG 871 ==
LOC: ER 18:48 → ERHOLD 21:20 → ICUW 21:20 → SURS 08-15 21:55
PROVIDERS: Emergency Medicine; Family Medicine; Internal Medicine Nephrology; Nurse Practitioner Acute Care; ADMIT Hospitalist
PROC: 05HN33Z Insertion of Infusion Device into Left Internal Jugular Vein, Percutaneous Approach (ICD-10-PCS; principal; 2018-08-13)
PROC: B544ZZA Ultrasonography of Left Jugular Veins, Guidance (ICD-10-PCS; 2018-08-13)
DX: A41.9 Sepsis, unspecified organism (principal); E11.10 Type 2 diabetes mellitus with ketoacidosis without coma; G92 Toxic encephalopathy; N39.0 Urinary tract infection, site not specified; E87.0 Hyperosmolality and hypernatremia; E87.6 Hypokalemia; E83.39 Other disorders of phosphorus metabolism; E03.9 Hypothyroidism, unspecified; J45.20 Mild intermittent asthma, uncomplicated; Z88.0 Allergy status to penicillin; E86.9 Volume depletion, unspecified; D64.9 Anemia, unspecified; E88.09 Other disorders of plasma-protein metabolism, not elsewhere classified
CPT/HCPCS: 36415; 36556; 36600; 51702; 71045; 76700; 80047; 80048; 80053; 80069; 81001; 81025; 82010; 82088; 82550; 82803; 82947; 83605; 83735; 83930; 84100; 84132; 84244; 84295; 84443; 85014; 85018; 85025; 87040; 87086; 87486; 87581; 87633; 87798; 87804; 93005; 93010; 94760; 96361; 96365; 96366; 96375; 96376; 99285-25; C1751; J0696; J1815; J2250; J2405; J2765; J3010; J3480; J7030; J7040; J7042; J7060

== ENCOUNTER → 2020-12-28 | Outpatient (CLI) | payer OTHER ==
[~2020-12-28] MED LIST changes: +ALBU90OI INH; +INSULANPEN SC; +Metformin HCl500 MG PO; +ONDA4ODT PO; +POTA10T PO; +SPIR50 PO
[2021-01-02 11:08] LABS: HPV 16 Negative (Negative); HPV 18 Negative (Negative); HPV OTHER HR TYPES Negative (Negative)
== END | disposition home or self-care (01) ==
LOC: LAB SHORT 17:30
PROVIDERS: Obstetrics & Gynecology
DX: Z12.4 Encounter for screening for malignant neoplasm of cervix (principal)
CPT/HCPCS: 87624; G0123

== ENCOUNTER 2025-01-06 05:52 | Inpatient (IN) | payer OTHER ==
[2025-01-06] VITALS (19 sets, daily range): BP systolic 65–129; BP diastolic 42–93
[~2025-01-06] VITALS: Ht 157.5 cm; Wt 95.0 kg
[2025-01-06] MEDS ORDERED: CeFAZolin Sodium 2,000 MG in NS 100 ML IV SCH (06:20)
[2025-01-06] MEDS ORDERED: Ondansetron HCl 2 MG / ML 2ML Vial IV PRN ×2 (06:30→08:20)
[2025-01-06] MEDS ORDERED: Metoclopramide HCl 5MG / ML 2ML Vial IV ONE (06:35)
[2025-01-06] MEDS ORDERED: Citric Acid/Sodium Citrate 30 ML BTL PO ONE (06:35)
[2025-01-06 06:40] LABS: BASOPHILS ABSOLUTE AUTO 0.05 K/mm3 (0.00-0.23); BASOPHILS PERCENT AUTO 0 % (0-2); EOSINOPHILS ABSOLUTE AUTO 0.03 K/mm3 (0.00-0.68); EOSINOPHILS PERCENT AUTO 0 % (0-6); Hematocrit 36.9 % (33.0-51.0); Hemoglobin 11.8 g/dL (11.5-16.0); IMMATURE GRAN ABSOLUTE AUTO 0.10 K/mm3 (0.00-0.10); IMMATURE GRAN PERCENT AUTO 1 % (0-1); LYMPHOCYTES ABSOLUTE AUTO 0.92 K/mm3 (0.84-5.20); LYMPHOCYTES PERCENT AUTO 6 % (21-46); MONOCYTES ABSOLUTE AUTO 1.03 K/mm3 (0.16-1.47); MONOCYTES PERCENT AUTO 7 % (4-13); Mean Corpuscular HGB Conc 32.0 g/dL (31.5-36.5); Mean Corpuscular Volume 85 fL (80-100); NEUTROPHILS ABSOLUTE AUTO 12.71 K/mm3 (1.96-9.15); NEUTROPHILS PERCENT AUTO 86 % (41-73); NRBC ABSOLUTE 0.00 K/mm3 (0.00-0.02); NRBC Auto 0.0 /100 WBC (0.0-0.2); Platelet Count 257 K/mm3 (150-400); RDW Coefficient Variation 16.1 % (11.7-14.2); RDW Standard Deviation 48.7 fL (35.1-46.3)
[2025-01-06] MEDS ORDERED: FentaNYL Citrate 50 MCG/ML 2 ML Injection ONE (07:04)
[2025-01-06] MEDS ORDERED: Midazolam HCl 1MG / ML 2ML Vial ONE (07:15)
[2025-01-06] MEDS ORDERED: Phenylephrine HCl 100 MCG/ML-NS 10MLSYR (1MG/10ML) ONE (07:28)
[2025-01-06] MEDS ORDERED: Dexamethasone Sod Phos 10 MG/ML 1ML VIAL ONE (07:28)
[2025-01-06] MEDS ORDERED: Ondansetron HCl 2 MG / ML 2ML Vial ONE (07:28)
[2025-01-06] MEDS ORDERED: Metoclopramide HCl 5MG / ML 2ML Vial ONE (07:28)
[2025-01-06] MEDS ORDERED: Oxytocin 10 Unit / ML Vial ONE (07:29)
--- NOTE | 2025-01-06 07:38 | NUR ---
01/06/25 0738 Armida Bishop VIABLE BABY GIRL BORN AT 0733.
[2025-01-06] MEDS ORDERED: Ketorolac Tromethamine 30mg Vial ONE (07:58)
[2025-01-06 08:16] LABS: PCO2 Cord - Arterial 60.2 mmHg (40-50); PO2 Cord - Arterial < 14.0 mmHg (16-20); pH Cord - Arterial 7.08 (7.28-7.35)
[2025-01-06 08:17] LABS: PCO2 Cord - Venous 49.9 mmHg (40-50); PO2 Cord - Venous < 14.0 mmHg (28-32); pH Umbilical Cord - Venous 7.15 (7.26-7.35)
[2025-01-06] MEDS ORDERED: Morphine Sulfate 4 MG/1 ML Injection IV PRN (08:20)
[2025-01-06] MEDS ORDERED: Magnesium Hydroxide Conc 10 ML UDC PO PRN (08:20)
[2025-01-06] MEDS ORDERED: OxyCODONE 5 mg/Acetamin 325 mg TABLET PO PRN (08:25)
[2025-01-06] MEDS ORDERED: Ketorolac Tromethamine 30mg Vial IV SCH (09:00)
[2025-01-06] MEDS ORDERED: Prenatal Vit/FE Fumarate/FA 1 Tab PO SCH (09:00)
[2025-01-06] MEDS ORDERED: OXYTOCIN/RINGER'S LACTATE 500 ML IV SCH (09:00)
--- NOTE | 2025-01-06 09:15 | NUR ---
Assumed care of pt in PACU that had a primary c/s for breech presentation at 35 weeks gestation. Pt reports having good pain control and unable to move toes at this time, andre cath in place drainig clear yellow urine, picco dressin clean and intact. Pt has Type 1 Diabetic and an order was placed to manage DM with Pt insulin pump from home, cartridge is in place on left thigh, pt signed insulin contract and will report insulin adjustments when needed.
[2025-01-06] MEDS ORDERED: Insulin Pump Cartridge MISC SC SCH (10:55)
--- NOTE | 2025-01-06 15:10 | NUR ---
ASSUMED CARE OF PATIENT AT THIS TIME. PREVIOUS RN REPORTS EMPTYING 1800ML OUT OF MOSQUERA ON HER SHIFT. PT IS AWARE OF INSULIN PUMP CONTRACT AND TO CALL RN WHEN MAKING ADJUSTMENTS.
--- NOTE | 2025-01-06 20:10 | NUR ---
patient positioned on left side to pass gas, ice pack applied to surgical inscision. patient requests rest from binder. rn will apply binder when patient ambulates to restoom upon calling rn
[2025-01-07] VITALS (7 sets, daily range): BP systolic 96–112; BP diastolic 50–85
--- NOTE | 2025-01-07 00:45 | NUR ---
patient sleeping on side, removed abdominal binder and declines at this time
[2025-01-07 06:56] LABS: BASOPHILS ABSOLUTE AUTO 0.04 K/mm3 (0.00-0.23); BASOPHILS PERCENT AUTO 0 % (0-2); EOSINOPHILS ABSOLUTE AUTO 0.16 K/mm3 (0.00-0.68); EOSINOPHILS PERCENT AUTO 2 % (0-6); Hematocrit 31.4 % (33.0-51.0); Hemoglobin 10.2 g/dL (11.5-16.0); IMMATURE GRAN ABSOLUTE AUTO 0.04 K/mm3 (0.00-0.10); IMMATURE GRAN PERCENT AUTO 0 % (0-1); LYMPHOCYTES ABSOLUTE AUTO 1.58 K/mm3 (0.84-5.20); LYMPHOCYTES PERCENT AUTO 16 % (21-46); MONOCYTES ABSOLUTE AUTO 1.24 K/mm3 (0.16-1.47); MONOCYTES PERCENT AUTO 12 % (4-13); Mean Corpuscular HGB Conc 32.5 g/dL (31.5-36.5); Mean Corpuscular Volume 84 fL (80-100); NEUTROPHILS ABSOLUTE AUTO 7.10 K/mm3 (1.96-9.15); NEUTROPHILS PERCENT AUTO 70 % (41-73); NRBC ABSOLUTE 0.00 K/mm3 (0.00-0.02); NRBC Auto 0.0 /100 WBC (0.0-0.2); Platelet Count 219 K/mm3 (150-400); RDW Coefficient Variation 16.5 % (11.7-14.2); RDW Standard Deviation 47.8 fL (35.1-46.3)
--- NOTE | 2025-01-07 10:23 | NUR ---
ASSUMED CARE OF PATIENT AT 0930.
[2025-01-08 00:32] VITALS: BP 108/66
[2025-01-08 04:02] VITALS: BP 99/57
[2025-01-08 08:37] VITALS: BP 121/84
[2025-01-08 15:46] VITALS: BP 121/72
--- NOTE | 2025-01-08 17:30 | NUR ---
LEFT UPPER ARM IV REMOVED AT 1550, NO OTHER IVs IN PLACE
[2025-01-08 17:36] VITALS: BP 116/69
== END 2025-01-08 17:48 | disposition home or self-care (01) | DRG 788 ==
LOC: OBS 05:52 → BC 05:55 → OBS 06:16 → BC 06:18
PROVIDERS: ADMIT Obstetrics & Gynecology
PROC: 10D00Z1 Extraction of Products of Conception, Low, Open Approach (ICD-10-PCS; principal; 2025-01-06 07:15)
DX: O36.8330 Maternal care for abnormalities of the fetal heart rate or rhythm, third trimester, not applicable or unspecified (principal); O42.913 Preterm premature rupture of membranes, unspecified as to length of time between rupture and onset of labor, third trimester; O32.1XX0 Maternal care for breech presentation, not applicable or unspecified; O24.424 Gestational diabetes mellitus in childbirth, insulin controlled; Z37.0 Single live birth; Z3A.35 35 weeks gestation of pregnancy
CPT/HCPCS: 36415; 36416; 59025; 82803; 82947; 85025; 86850; 86900; 86901; 86923; 99214; A9270; J0456; J1100; J1885; J2250; J2270; J2371; J2405; J2590; J2765; J3010; J7050